=== PATIENT | female | born 1990 | race Caucasian/White ===

== ENCOUNTER 2016-10-12 08:56 | Inpatient (IN) | payer MEDICAID, OTHER ==
--- NOTE | 2016-10-12 09:36 | Emergency Department Report ---
Chief Complaint: Abdominal Pain Stated Complaint: 12 WKS PREG/SHARP PAINS ON SIDE Time Seen by Provider: 10/12/16 09:28 - HPI History of Present Illness: 26-year-old female comes in for complaint of right side pain 2 days. Patient reports that she is 12 weeks . She reports that the pain is gotten worse she does admit to nausea vomiting vaginal discharge and painful urination. Patient denies any diarrhea and no vaginal bleeding. She rates her pain 10 out of 10. She has not started OB care as of yet. She does admit to taking vitamins. - Exam Vital Signs: Vital Signs 10/12/16 09:04 Temperature 98.6 F Pulse Rate 109 H Respiratory 18 Rate Blood Pressure 121/71 O2 Sat by Pulse 98 Oximetry Physical Exam: Patient's alert and oriented 3. She is in obvious pain., Cardiovascular S1- S2 tachycardic respiratory care to auscultation bilateral abdomen soft and very tender around the john-umbilicus in the right lower quadrant as well as the right side. Extremities there is no edema. MSE screening note: Focused history and physical exam performed. Due to findings the following was ordered: She has been evaluated by this provider in C. CBCs CMP hCG serum lipase amylase urinalysis urine culture and ultrasound less than 14 weeks has been ordered. She'll be evaluated in the main ER by the physicians. ED Disposition for MSE Condition: Stable Instructions: Abdominal Pain (ED)
[2016-10-12 09:47] LABS: Hematocrit 33.1 % (30.3-42.9); Hemoglobin 10.7 gm/dl (10.1-14.3); Mean Corpuscular HGB Conc 32 % (30-34); Mean Corpuscular Volume 80 fl (79-97); Platelet Count 240 K/mm3 (140-440); Red Blood Count 4.15 M/mm3 (3.65-5.03); Red Cell Distribution Width 16.5 % (13.2-15.2); White Blood Count 15.1 K/mm3 (4.5-11.0)
[2016-10-12 09:49] LABS: Mean Corpuscular Hemoglobin 26 pg (28-32)
[2016-10-12 10:02] LABS: Alanine Aminotransferase 9 units/L (7-56); Albumin 3.7 g/dL (3.9-5); Albumin/Globulin Ratio 0.9 %; Alkaline Phosphatase 109 units/L (35-129); Amylase 40 units/L (27-131); Anion Gap 19 mmol/L; BUN/Creatinine Ratio 23.33; Bilirubin,Total 0.2 mg/dL (0.1-1.2); Blood Urea Nitrogen 7 mg/dL (7-17); Calcium 8.6 mg/dL (8.4-10.2); Carbon Dioxide 23 mmol/L (22-30); Chloride 98.1 mmol/L (98-107); Glucose 107 mg/dL (65-100); Lipase 18 units/L (13-60); Sodium 136 mmol/L (137-145); Total Protein 7.6 g/dL (6.3-8.2)
[2016-10-12 10:37] LABS: Bilirubin,Urine NEG (Negative); Blood,Urine SM (Negative); Ketones,Urine NEG (Negative); Leukocyte Esterase,Urine LG (Negative); Mucus,Urine FEW /HPF; Nitrite,Urine NEG (Negative); Urobilinogen,Urine < 2.0 mg/dL (<2.0)
[2016-10-12 10:38] LABS: WBC,Urine > 182.0 /HPF (0.0-6.0)
--- NOTE | 2016-10-12 11:37 | Ultrasound Report ---
ULTRASOUND ABDOMEN LIMITED INDICATION: Right upper quadrant pain. History of gallstones. COMPARISON: None similar. FINDINGS: Right upper quadrant sonography demonstrates normal hepatic contour and echotexture without focal suspicious lesions or biliary dilatation. Numerous small, mobile echogenic gallstones with posterior acoustic shadowing noted. Gallbladder wall thickness is 2 mm. No pericholecystic fluid. Positive sonographic Nails's sign. Common bile duct measures up to 4 mm. Included pancreas, nonaneurysmal abdominal aorta, IVC and the right kidney appear within normal limits. CONCLUSION: Cholelithiasis and positive sonographic Nails's sign, as described. Please correlate. Thank you for the opportunity to participate in this patient's care.
--- NOTE | 2016-10-12 11:49 | Ultrasound Report ---
ULTRASOUND OB LESS THAN 14 WEEKS - TRANSABDOMINAL AND TRANSVAGINAL INDICATION: Abdominal pain for 2 days. Positive uterine test. COMPARISON: None similar during this gestation. FINDINGS: Transabdominal and transvaginal pelvic sonography performed in this patient with estimated menstrual age of 11 weeks and zero days. An anteverted, gravid uterus measuring approximately 12.1 x 8 x 10.3 cm demonstrates a single, live intrauterine gestation with heart rate of 182 beats per minute. Mean crown-rump length of 5.7 cm corresponds to 12 weeks and 2 days. No significant free fluid. Cervix appears closed. body and limb movements noted. Few other obtained measurements are as follows: Biparietal diameter equals 1.8 cm, corresponding to 12 weeks and 5 days. Femur length 0.6 cm, corresponding to 12 weeks and zero days. Both maternal ovaries obscured. CONCLUSION: 1. Single, live intrauterine gestation with an ultrasound estimated age of 12 weeks and 2 days and HELEN of 04/24/2017. 2. Few other findings, as above. Thank you for the opportunity to participate in this patient's care.
[2016-10-12] MEDS ORDERED: TYLENOL #3 PO ONE (12:03)
[2016-10-12] MEDS ORDERED: MORPHINE IV ONE (19:27)
[2016-10-12] MEDS ORDERED: ZOFRAN IV ONE (19:27)
[2016-10-12] MEDS ORDERED: ZOSYN/NS 4.5GM/100ML 100 ML IV ONE (19:27)
--- NOTE | 2016-10-12 19:31 | Emergency Department Report ---
ED General Adult HPI - General Chief complaint: Abdominal Pain Stated complaint: 12 WKS PREG/SHARP PAINS ON SIDE Time Seen by Provider: 10/12/16 09:28 Source: patient, RN notes reviewed, old records reviewed Mode of arrival: Ambulatory Limitations: No Limitations - History of Present Illness Initial comments: This is a 26-year-old female, previously unknown to me. Has a past medical history of biliary colic. She is 6, para 4. Last menstrual period is July 27. She has not received any care. She presents to the ER complaining of right upper quadrant pain that radiates to the back. She endorses nausea and vomiting and generalized weakness. Patient also describes dysuria. Symptoms are constant for the past day or so. They're getting worse. She denies lower abdominal pain to me. She denies fevers but admits to chills. -: Gradual Location: back, abdomen Radiation: back Severity scale (0 -10): 10 Consistency: constant Improves with: rest Associated Symptoms: fever/chills, headaches, malaise, nausea/vomiting, weakness. denies: chest pain, cough, diaphoresis - Related Data Home Medications Medication Instructions Recorded Confirmed Last Taken Vit#96/Ferrous Fum/FA 1 tab PO DAILY 09/12/13 08/15/15 09/12/13 18:00 [ Tablet] Ferrous Sulfate [Iron Supplement] 325 mg PO DAILY 12/10/13 08/15/15 Unknown Allergies Allergy/AdvReac Type Severity Reaction Status Date / Time No Known Allergies Allergy Verified 12/10/13 00:15 ED Review of Systems ROS: Stated complaint: 12 WKS PREG/SHARP PAINS ON SIDE Other details as noted in HPI Constitutional: malaise Eyes: denies: eye discharge ENT: denies: epistaxis Respiratory: denies: cough Cardiovascular: denies: chest pain Gastrointestinal: abdominal pain, nausea, vomiting Genitourinary: urgency, dysuria, frequency Musculoskeletal: back pain Skin: denies: lesions Neurological: weakness ED Past Medical Hx - Past Medical History Hx Hypertension: No Hx Congestive Heart Failure: No Hx Diabetes: No Hx Deep Vein Thrombosis: No Hx Renal Disease: No Hx Sickle Cell Disease: No Hx Seizures: No Hx Asthma: No Hx COPD: No Hx HIV: No Additional medical history: gall stones - Surgical History Hx Cholecystectomy: Yes - Social History Smoking Status: Never Smoker - Medications Home Medications: Home Medications Medication Instructions Recorded Confirmed Last Taken Type Vit#96/Ferrous Fum/FA 1 tab PO DAILY 09/12/13 08/15/15 09/12/13 18:00 History [ Tablet] Ferrous Sulfate [Iron Supplement] 325 mg PO DAILY 12/10/13 08/15/15 Unknown History ED Physical Exam - General Limitations: No Limitations General appearance: alert, in distress - Head Head exam: Present: atraumatic, normocephalic - Eye Eye exam: Present: normal appearance, EOMI. Absent: nystagmus - ENT ENT exam: Present: normal exam, normal orophraynx, mucous membranes moist - Neck Neck exam: Present: normal inspection, full ROM. Absent: tenderness, meningismus - Respiratory Respiratory exam: Present: normal lung sounds bilaterally. Absent: respiratory distress, wheezes, rales, rhonchi, stridor, chest wall tenderness - Cardiovascular Cardiovascular Exam: Present: normal rhythm, tachycardia, normal heart sounds. Absent: systolic murmur, diastolic murmur, rubs, gallop - GI/Abdominal GI/Abdominal exam: Present: soft, tenderness, guarding, normal bowel sounds. Absent: distended, pulsatile mass - Extremities Exam Extremities exam: Present: normal inspection, full ROM, normal capillary refill. Absent: tenderness, pedal edema, joint swelling, calf tenderness - Back Exam Back exam: Present: normal inspection, full ROM, CVA tenderness (R). Absent: tenderness, muscle spasm, paraspinal tenderness, vertebral tenderness - Neurological Exam Neurological exam: Present: alert, oriented X3, other (Extraocular movements intact. Tongue midline. No facial droop. Facial sensation intact to light touch in the V1, V2, V3 distribution bilaterally. 5 and 5 strength in 4 extremities.. Sensation is intact to light touch in 4 extremities.). Absent: motor sensory deficit - Psychiatric Psychiatric exam: Present: normal affect, normal mood - Skin Skin exam: Present: warm, dry, intact, normal color. Absent: rash ED Course Vital Signs 10/12/16 10/12/16 10/12/16 09:04 20:13 23:10 Temperature 98.6 F 98.2 F Pulse Rate 109 H 115 H Respiratory 18 22 20 Rate Blood Pressure 121/71 Blood Pressure 110/63 [Left] O2 Sat by Pulse 98 100 Oximetry - Reevaluation(s) Reevaluation #1: 10/12/16 19:34 differential diagnosis: Normal intrauterine , pyelonephritis, cholecystitis Assessment and plan: 26-year-old female with clinical pyelonephritis, cholecystitis, intrauterine . Transabdominal/transvaginal ultrasound demonstrates a 12 week 2 day . Urine cultures, blood cultures are ordered. 2 L of IV fluids are ordered. Zosyn antibiotic is ordered. Case is discussed with the general surgeon, Dr. Patten, who will follow as a consult. Case is discussed with the mail processing associate, Dr. Cole, who accepts the patient to her service. 10/12/16 19:44 ED Medical Decision Making - Lab Data Result diagrams: 10/12/16 09:38 10/12/16 09:38 Vital Signs 10/12/16 09:04 Temperature 98.6 F Pulse Rate 109 H Respiratory 18 Rate Blood Pressure 121/71 O2 Sat by Pulse 98 Oximetry Lab Results 10/12/16 10/12/16 10/12/16 Range/Units 09:38 09:38 09:38 WBC 15.1 H (4.5-11.0) K/mm3 RBC 4.15 (3.65-5.03) M/mm3 Hgb 10.7 (10.1-14.3) gm/dl Hct 33.1 (30.3-42.9) % MCV 80 (79-97) fl MCH 26 L (28-32) pg MCHC 32 (30-34) % RDW 16.5 H (13.2-15.2) % Plt Count 240 (140-440) K/mm3 Sodium 136 L (137-145) mmol/L Potassium 4.0 (3.6-5.0) mmol/L Chloride 98.1 (98-107) mmol/L Carbon Dioxide 23 (22-30) mmol/L Anion Gap 19 mmol/L BUN 7 (7-17) mg/dL Creatinine 0.3 L (0.7-1.2) mg/dL Estimated GFR > 60 ml/min BUN/Creatinine Ratio 23.33 % Glucose 107 H (65-100) mg/dL Calcium 8.6 (8.4-10.2) mg/dL Total Bilirubin 0.2 (0.1-1.2) mg/dL AST 18 (5-40) units/L ALT 9 (7-56) units/L Alkaline Phosphatase 109 (35-129) units/L Total Protein 7.6 (6.3-8.2) g/dL Albumin 3.7 L (3.9-5) g/dL Albumin/Globulin Ratio 0.9 % Amylase 40 (27-131) units/L Lipase 18 (13-60) units/L HCG, Qual Positive (Negative) Urine Color (Yellow) Urine Turbidity (Clear) Urine pH (5.0-7.0) Ur Specific [place] (1.003-1.030) Urine Protein (Negative) mg/dL Urine Glucose (UA) (Negative) mg/dL Urine Ketones (Negative) mg/dL Urine Blood (Negative) Urine Nitrite (Negative) Urine Bilirubin (Negative) Urine Urobilinogen (<2.0) mg/dL Ur Leukocyte Esterase (Negative) Urine WBC (Auto) (0.0-6.0) /HPF Urine RBC (Auto) (0.0-6.0) /HPF U Epithel Cells (Auto) (0-13.0) /HPF Urine Mucus /HPF Urine Yeast (Budding) 10/12/16 Range/Units 10:08 WBC (4.5-11.0) K/mm3 RBC (3.65-5.03) M/mm3 Hgb (10.1-14.3) gm/dl Hct (30.3-42.9) % MCV (79-97) fl MCH (28-32) pg MCHC (30-34) % RDW (13.2-15.2) % Plt Count (140-440) K/mm3 Sodium (137-145) mmol/L Potassium (3.6-5.0) mmol/L Chloride (98-107) mmol/L Carbon Dioxide (22-30) mmol/L Anion Gap mmol/L BUN (7-17) mg/dL Creatinine (0.7-1.2) mg/dL Estimated GFR ml/min BUN/Creatinine Ratio % Glucose (65-100) mg/dL Calcium (8.4-10.2) mg/dL Total Bilirubin (0.1-1.2) mg/dL AST (5-40) units/L ALT (7-56) units/L Alkaline Phosphatase (35-129) units/L Total Protein (6.3-8.2) g/dL Albumin (3.9-5) g/dL Albumin/Globulin Ratio % Amylase (27-131) units/L Lipase (13-60) units/L HCG, Qual (Negative) Urine Color Yellow (Yellow) Urine Turbidity Cloudy (Clear) Urine pH 7.0 (5.0-7.0) Ur Specific [place] 1.013 (1.003-1.030) Urine Protein 30 mg/dl (Negative) mg/dL Urine Glucose (UA) Neg (Negative) mg/dL Urine Ketones Neg (Negative) mg/dL Urine Blood Sm (Negative) Urine Nitrite Neg (Negative) Urine Bilirubin Neg (Negative) Urine Urobilinogen < 2.0 (<2.0) mg/dL Ur Leukocyte Esterase Lg (Negative) Urine WBC (Auto) > 182.0 H (0.0-6.0) /HPF Urine RBC (Auto) 6.0 (0.0-6.0) /HPF U Epithel Cells (Auto) < 1.0 (0-13.0) /HPF Urine Mucus Few /HPF Urine Yeast (Budding) Not Reportable - Radiology Data Radiology results: report reviewed, image reviewed Right upper quadrant ultrasound suggests cholecystitis. There is a positive sonographic Nails sign. Gallbladder wall thickness is 2 mm. Transvaginal/transabdominal ultrasound demonstrates a single live intrauterine gestation of 12 weeks and 2 days, appropriate heartbeat. Critical care attestation.: If time is entered above; I have spent that time in minutes in the direct care of this critically ill patient, excluding procedure time. ED Disposition Clinical Impression: Maternal pyelonephritis, current , Cholecystitis Disposition: OP ADMITTED IP TO THIS HOSP Is pt being admited?: Yes Does the pt Need Aspirin: No Condition: Good
[2016-10-12] MEDS ORDERED: NACL 0.9% 1000 ML 1,000 ML ONE ×2 (19:56→19:57)
[2016-10-12] MEDS ORDERED: NACL 0.9% 500 ML IV SCH (20:00)
--- NOTE | 2016-10-12 22:54 | Admit Criteria Form ---
Admission Criteria Documentation: GALLBLADDER OR BILE DUCT INFLAMMATION OR STONE Clinical Indications for Admission to Inpatient Care ( Place 'X' for any and all applicable criteria): Admission is indicated for patients with ANY ONE of the following(1)(2)(3)(4)(5) : [ ]I. Acute cholecystitis as indicated by ALL of the following: [ ]a) Right upper quadrant pain, mass, or tenderness [ ]b) Systemic signs of inflammation indicated by ANY ONE of the following: [ ]i) Fever [ ]ii) C-reactive protein level greater than 10 mg/L (95 nmol/L) [ ]iii) White blood cell count greater than 10,000/mm3 (10 x109/L) or less than 4000/mm3 (4 x109/L) [ X]II. Inpatient admission required rather than observation care (Also use Gallbladder or Bile Duct Inflammation or Stone: Observation Care as appropriate) because of ANY ONE of the following: [ ]a) Common bile duct obstruction diagnosed [ ]b) Vomiting that is severe or persistent [ ]c) Severe pain requiring acute inpatient management [ ]d) Signs of intestinal obstruction or peritonitis [A] [ ]e) Severe electrolyte abnormalities requiring inpatient care [ ]f) Absent bowel sounds with complete ileus(8) [ ]g) Hemodynamic instability [ ]h) High fever or infection requiring inpatient admission as indicated by ANY ONE of the following (9): [ ]1) Appropriate outpatient or observation care antimicrobial Treatment. unavailable, not effective, or not feasible [ ]2) Temperature greater than 104.9 degrees F (40.5 degrees C) (oral) [ ]3) Temperature greater than 103.1 degrees F (39.5 degrees C) (oral) or less than 96.8 degrees F (36 degrees C) (rectal) that does not respond to all emergency treatment measures [ ]4) Documented bacteremia [ ]i) IV fluid to replace significant ongoing losses (greater than 3 L/m2 per day) [ ]j) Percutaneous or open drainage (eg, abscess, biliary tract) procedures [ ]k) Immediate inpatient surgery [X ]l) Other condition, treatment or monitoring requiring inpatient admission [ ]III. Acute cholangitis as indicated by ALL of the following(9)(10): [ ]a) Systemic signs of inflammation indicated by ANY ONE of the following: [ ]i) Fever [ ]ii) C-reactive protein level greater than 10 mg/L (95 nmol /L) [ ]iii) White blood cell count greater than 10,000/mm3 (10 x109/L) or less than 4000/mm3 (4 x109/L) [ ]b) Evidence of common bile duct disease indicated by ANY ONE of the following: [ ]i) Total serum bilirubin level greater than or equal to 2 mg/dL (34 micromoles/L) [ ]ii) Liver function test (alkaline phosphatase (ALP), r- glutamyltransferase (GGT), aspartate aminotransferase (AST), or alanine aminotransferase (ALT)) greater than 1.5 times the upper limit of normal[B] [ ]iii) Hepatobiliary imaging showing biliary dilatation or evidence of etiology (eg, stricture, stone, previously placed stent) Extended stay beyond goal length of stay may be needed for (1)(2)): [ ]a) Bacteremia or Hemodynamic instability [ ]b) Cholecystectomy [ ]c) Other surgical procedure(24) [ ]d) Percutaneous or endoscopic ultrasound-guided cholecystostomy The original [facility] content created by [facility] has been revised. The portions of the content which have been revised are identified through the use of italic text or in bold, and [facility] has neither reviewed nor approved the modified material. All other unmodified content is copyright [facility]. Please see references footnoted in the original [facility] edition 2016 Admission Criteria Met: Yes
[2016-10-12] MEDS ORDERED: NACL 0.9% 1000 ML 1,000 ML IV ONE (22:56)
[2016-10-12] MEDS: ZOFRAN IV PRN (23:24)
[2016-10-12] MEDS: MORPHINE IV PRN (23:24)
[2016-10-13] MEDS: MORPHINE IV PRN ×5 (01:46→18:50)
--- NOTE | 2016-10-13 05:59 | History and Physical Report ---
History of Present Illness Date of examination: 10/13/16 Date of admission: 10/12/16 19:50 Chief complaint: Intrauterine at 12 weeks, cholecystitis, pyelonephritis History of present illness: This is a 26-year-old female 6 para 1314 who presented to the ER with complaint of severe right upper quadrant pain and right flank pain that started on Tuesday. She states she knew she was . States she's had nausea and vomiting for the last several weeks most likely associated with morning sickness. Pain became excessively severe yesterday and she presented to the ED for evaluation. Right upper quadrant abdominal ultrasound was consistent with cholelithiasis with a positive Nails sign. Urinalysis revealed large amount of leukocytes and trace protein. She had a temperature of 100.0F early this a.m. also patient has right flank and CVA tenderness. She is admitted now for evaluation and management of pyelonephritis and cholecystitis. # 1 Delivery date: 12/15/2009 Weeks Gestation: 36 labor: yes Delivery type: Hours of labor: >12 Anesthesia type: epidural Delivery location: [place] [facility] Sex: Male weight: 6-0 Name: Roby Comments: david # 2 Delivery date: 09/08/2011 Weeks Gestation: 32 labor: yes Delivery type: Hours of labor: 6 Anesthesia type: IV Delivery location: [place] Sex: Female weight: 4-12 Name: Waleska # 3 Delivery date: 10/2012 Weeks Gestation: 7 Delivery type: SAB Comments: D&C done 2 weeks after SAB # 4 Delivery date: 01/11/2014 Weeks Gestation: 36 Delivery type: Vaginal Delivery location: [facility] Inf[facility] Sex: female Comments: labor # 5 Delivery Date: 08/15/2015 Gestational Age: 37 weeks Delivery Type: Vaginal Complications: 1.intrahepatic cholestasis of 2.preciptous delivery en route in to L&D by private car. Past Medical History: Reviewed history from 09/03/2013 and no changes required: Anemia Gallstone Past Surgical History: Reviewed history from 09/03/2013 and no changes required: D&C: Family History Summary: Reviewed history and no changes required: 04/02/2015 General Comments - FH: Family History of Diabetes Family History of Hypertension No Family History of Breast Cancer No Family History of Cervical Cancer No Family History of Colon Cancer No Family History of Ovarvian Cancer No Family History of DVT/PE on OCP Social History: Reviewed history from 09/03/2013 and no changes required: Patient is single unemployed Past Medical History Abnormal PAP: negative Uterine Anomaly: negative Other Gynecologic Problems: negative Social Hx: Patient is single unemployed Infection History Hx of STD: none Personal hx. of genital herpes: no Partner hx. of genital herpes: no Rash, Viral, or Febrile illness since last LMP? no Varicella/Chicken Pox Status: Previous Disease Medications and Allergies Allergies Allergy/AdvReac Type Severity Reaction Status Date / Time No Known Allergies Allergy Verified 12/10/13 00:15 Home Medications Medication Instructions Recorded Confirmed Last Taken Type Vit#96/Ferrous Fum/FA 1 tab PO DAILY 09/12/13 08/15/15 09/12/13 18:00 History [ Tablet] Ferrous Sulfate [Iron Supplement] 325 mg PO DAILY 12/10/13 08/15/15 Unknown History Active Meds: Active Medications Ceftriaxone Sodium (Rocephin/Ns 1 Gm/50 Ml) 50 mls @ 100 mls/hr IV Q24HR KAJAL PRN Reason: Protocol Sodium Chloride (Nacl 0.9% 1000 Ml) 1,000 mls @ 125 mls/hr IV ONCE ONE Stop: 10/13/16 06:55 Last Admin: 10/12/16 23:24 Dose: 125 mls/hr Morphine Sulfate (Morphine) 2 mg IV Q4H PRN PRN Reason: Pain, Moderate (4-6) Last Admin: 10/13/16 05:35 Dose: 2 mg Morphine Sulfate (Morphine) 4 mg IV Q4H PRN PRN Reason: Pain , Severe (7-10) Last Admin: 10/12/16 23:24 Dose: 4 mg Ondansetron HCl (Zofran) 4 mg IV Q4H PRN PRN Reason: Nausea And Vomiting Last Admin: 10/12/16 23:24 Dose: 4 mg Review of Systems All systems: negative Constitutional: weakness, lethargy Gastrointestinal: abdominal pain, nausea, vomiting Genitourinary Female: flank pain Neurological: syncope Exam - Constitutional Vitals: Temp Pulse Resp BP Pulse Ox 99.4 F 106 H 16 102/50 100 10/13/16 05:20 10/13/16 05:20 10/13/16 05:20 10/13/16 05:20 10/12/16 23:10 General appearance: Present: no acute distress - Respiratory Respiratory effort: normal Respiratory: right: CTA, left: wheezing - Cardiovascular Rhythm: regular - Extremities Extremities: no ischemia, No edema - Abdominal General gastrointestinal: Present: soft, normal bowel sounds Localized gastrointestinal: tender: RUQ Female genitourinary: Present: deferred - Integumentary Integumentary: Present: clear, warm, dry - Musculoskeletal Musculoskeletal: other (right CVA/flank tenderness) - Psychiatric Psychiatric: appropriate mood/affect Results - Labs CBC & Chem 7: 10/12/16 09:38 10/12/16 09:38 - Imaging and Cardiology US - abdomen: report reviewed (pelvic ultrasound report also reviewed) Assessment and Plan - Patient Problems (1) 12 weeks gestation of Current Visit: Yes Status: Acute (2) Cholecystitis Current Visit: Yes Status: Acute Plan to address problem: 1. Dr. Gorman is being consult to manage cholecystitis 2. Continue nothing by mouth (3) Maternal pyelonephritis, current Current Visit: Yes Status: Acute Plan to address problem: 1. Rocephin 1 g IV daily 2. Urine culture pending 3. Renal ultrasound (4) Wheezing Current Visit: Yes Status: Acute Plan to address problem: Chest x-ray abdominal shielding (5) Syncopal episodes Current Visit: Yes Status: Chronic Plan to address problem: Patient states she passed out twice over the last week. Each episode here to be associated with hypoglycemia. She denied any chest pain, shortness of breath , headache visual changes.Will Observe for now
--- NOTE | 2016-10-13 08:50 | XRay Report ---
ROUTINE CHEST, TWO VIEWS: HISTORY: Wheezing. The trachea, heart, mediastinal contour, lung wetzel and bony thorax are unremarkable. IMPRESSION: Unremarkable chest x-ray.
--- NOTE | 2016-10-13 09:44 | Ultrasound Report ---
ULTRASOUND RENAL INDICATION: Evaluate for nephrolithiasis. COMPARISON: RUQ ultrasound from yesterday. FINDINGS: Renal sonography demonstrates normal renal cortical echogenicity. Few small non-shadowing renal echogenicities bilaterally, though nonspecific. Grossly preserved contours. No hydronephrosis. Cholelithiasis again noted. Right kidney measures 11.2 x 5 x 6.4 cm with cortical thickness of 1.5 cm. Left kidney estimated at 10.8 x 5.3 x 6 cm with cortical thickness of 1.9 cm. Urinary bladder suboptimally distended and assessed. CONCLUSION: No acute renal sonographic abnormality with cholelithiasis again noted, as described. Please note that renal calculi assessment better achieved with CT, if warranted. Thank you for the opportunity to participate in this patient's care.
[2016-10-13] MEDS: ROCEPHIN/NS 1 GM/50 ML 50 ML IV SCH (11:25)
[2016-10-13] MEDS: LACTATED RINGERS 1,000 ML IV SCH (16:20)
[2016-10-13] MEDS: ZOFRAN IV PRN (20:00)
[2016-10-14] MEDS: MORPHINE IV PRN ×5 (00:20→19:55)
[2016-10-14] MEDS: LACTATED RINGERS 1,000 ML IV SCH ×4 (00:20→21:23)
[2016-10-14] MEDS: ZOFRAN IV PRN ×4 (00:20→21:23)
--- NOTE | 2016-10-14 02:24 | Consultation ---
REASON FOR CONSULTATION: Rule out acute cholecystitis. HISTORY OF PRESENT ILLNESS: The patient is a healthy 26-year-old female, 12 weeks gestation, who presented to the hospital with a chief complaint of right upper quadrant abdominal pain as well as right flank pain accompanied by nausea and vomiting. Pertinent history again is that she is 12 weeks . PAST MEDICAL HISTORY: Negative. PAST SURGICAL HISTORY: Status post D and C. ALLERGIES: No known allergies. MEDICATIONS: Include vitamins. FAMILY HISTORY: Asthma and diabetes. SOCIAL HISTORY: Denies any smoking or drinking. REVIEW OF SYSTEMS: Noncontributory. PHYSICAL EXAMINATION: GENERAL: At this time reveals the patient to be awake, alert, cooperative, in mild discomfort, but no acute distress. VITAL SIGNS: Show her to be running a low grade temperature of 99.4. Blood pressure of 109/57, pulse of 108, respirations of 20. HEENT: Pupils are equal and reactive to light and accommodation. Sclerae are nonicteric. ABDOMEN: Examination of the abdomen reveals the uterus to be compatible with 12 weeks' gestation. There is some right upper quadrant tenderness that can be elicited as well as some right flank tenderness. The rest of the abdomen is soft and nontender. Bowel sounds are present. LABORATORY DATA: Lab work at present includes a CBC which shows a white count of 15.1, H and H is 10.7 and 33.1. Electrolytes are essentially within normal limits. Liver functions are also normal including a total bilirubin of 0.2, AST is 18, ALT is 9, alkaline phosphatase is 109. Amylase is normal at 40 and lipase is normal at 18. Urinalysis shows over 180 wbc's. The urine is cloudy. Urine clean catch was done, which shows a preliminary gram-negative rods. Gallbladder ultrasound was also performed, which shows cholelithiasis. There is no mentioning of pericholecystic fluid. The gallbladder wall was essentially normal with a 2 mm thickness. Common bile duct is described as 4 mm. A transvaginal ultrasound again confirmed an intrauterine gestation estimated at 12 weeks. No other pelvic abnormalities were noted. Renal ultrasound shows no acute renal sonographic abnormalities and cholelithiasis is once again confirmed. IMPRESSION AND PLAN: At this time is that of a 26-year-old healthy female, 12 weeks gestation: 1. Rule out acute cholecystitis. 2. Rule out pyelonephritis. RECOMMENDATION: At this time, we will keep the patient n.p.o. except for ice chips and p.o. medications. Begin appropriate antibiotic coverage that would cover both acute cholecystitis as well as her positive urine culture. Antibiotics as per retread mold operator due to the patient's . We will monitor her closely clinically for the next 24-48 hours. If she clinically improves, then we may be able to postpone her surgery until . However, if the patient is not clinically improved or her condition worsens, then we will proceed with attempted laparoscopic cholecystectomy, possible open cholecystectomy. Risks and indications have been reviewed with the patient as well as her mom and also possible risks and complications because of her , to the fetus because of her . We will follow closely with you. Thank you very much for consultation. JOB# [id number] SPENCER/LUTHER
[2016-10-14 06:32] LABS: Basophils % (Auto) 0.1 % (0.0-1.8); Eosinophils % (Auto) 0.1 % (0.0-4.3); Hematocrit 26.6 % (30.3-42.9); Hemoglobin 8.8 gm/dl (10.1-14.3); Mean Corpuscular HGB Conc 33 % (30-34); Mean Corpuscular Hemoglobin 26 pg (28-32); Mean Corpuscular Volume 79 fl (79-97); Platelet Count 187 K/mm3 (140-440); Red Blood Count 3.36 M/mm3 (3.65-5.03); Red Cell Distribution Width 16.1 % (13.2-15.2); White Blood Count 11.3 K/mm3 (4.5-11.0)
[2016-10-14 06:58] LABS: Alanine Aminotransferase 15 units/L (7-56); Albumin 2.9 g/dL (3.9-5); Alkaline Phosphatase 154 units/L (35-129); Anion Gap 15 mmol/L; BUN/Creatinine Ratio 13.33; Bilirubin,Total 0.2 mg/dL (0.1-1.2); Blood Urea Nitrogen 4 mg/dL (7-17); Calcium 7.8 mg/dL (8.4-10.2); Carbon Dioxide 20 mmol/L (22-30); Chloride 98.2 mmol/L (98-107); Glucose 84 mg/dL (65-100); Potassium 3.5 mmol/L (3.6-5.0); Sodium 130 mmol/L (137-145); Total Protein 5.8 g/dL (6.3-8.2)
--- NOTE | 2016-10-14 10:31 | Consultation ---
History of Present Illness - Reason for Consult Consult date: 10/14/16 UTI - History of Present Illness Ms Crouch is a 26y/o female ( ) who presents for admission to , 12 weeks with now a history of worsening right upper quadrant pain ( 10/10 intensity) associated with nausea and vomiting. She has evidence of cholelithiasis without ultrasound findings of cholecystitis. In addition she has an active urinary sediment with urine culture showing growth of Escherichia coli. Ms Crouch describes being told that she had gallstones in the past and apparently at one time there was consideration for possible surgery. Recently she has been aware of more frequent indigestion with fried or greasy foods. She otherwise, over the last several days, has had urinary frequency, urgency and dysuria. She does not have a history of recurrent UTIs or pyelonephritis. She has had no difficulties with her previous pregnancies. She has no history of STD or HIV. She denies other chronic medical problems. Renal ultrasound is otherwise unremarkable. Gallbladder ultrasound is noted with stones without evidence of gallbladder wall thickening or pericholecystic fluid. Further lab data from 10/12 includes a CBC with white count 15,100, hemoglobin 10.7 and platelet count 240,000. Lactate levels 1.7. Urinalysis showed greater than 182 WBCs with cloudy urine described. Blood cultures are negative. Liver profile is unremarkable. The patient is seen now for further ID recommendations. Medications and Allergies Allergies Allergy/AdvReac Type Severity Reaction Status Date / Time No Known Allergies Allergy Verified 12/10/13 00:15 Home Medications Medication Instructions Recorded Confirmed Last Taken Type Vit#96/Ferrous Fum/FA 1 tab PO DAILY 09/12/13 10/13/16 09/12/13 18:00 History [ Tablet] Ferrous Sulfate [Iron Supplement] 325 mg PO DAILY 12/10/13 10/13/16 Unknown History Active Meds: Active Medications Ceftriaxone Sodium (Rocephin/Ns 1 Gm/50 Ml) 50 mls @ 100 mls/hr IV Q24HR KAJAL PRN Reason: Protocol Last Admin: 10/13/16 11:25 Dose: 100 mls/hr Lactated Ringer's (Lactated Ringers) 1,000 mls @ 125 mls/hr IV DIRECT KAJAL Last Admin: 10/14/16 07:31 Dose: 125 mls/hr Morphine Sulfate (Morphine) 2 mg IV Q4H PRN PRN Reason: Pain, Moderate (4-6) Last Admin: 10/14/16 03:55 Dose: 2 mg Morphine Sulfate (Morphine) 4 mg IV Q4H PRN PRN Reason: Pain , Severe (7-10) Last Admin: 10/14/16 00:20 Dose: 4 mg Ondansetron HCl (Zofran) 4 mg IV Q4H PRN PRN Reason: Nausea And Vomiting Last Admin: 10/14/16 03:55 Dose: 4 mg Review of Systems Gastrointestinal: abdominal pain, nausea, vomiting (see discussion) Physical Examination - Physical Exam Narrative exam: Well-developed, well-nourished appearing. No distress. HEENT: Pupils are equal reactive to light and accommodation. Conjunctiva clear. Oropharynx is normal with no evidence of oral candidiasis or pharyngitis. NECK: Supple. No enlargement of the thyroid gland. No significant cervical lymphadenopathy. No jugular venous distention at 30. LUNGS: Clear with no adventitious sounds. HEART: Regular rate. S1 and S2 are normal. Soft systolic murmur along the left sternal border. No diastolic murmur. ABDOMEN: Soft. Slight right upper quadrant tenderness but marked right flank CVA point tenderness. : As per BUILDING REPAIR MAINTENANCE SUPERVISOR. EXTREMITIES: No rash, peripheral lymphadenopathy, clubbing or edema. SKIN: No other rash, ulcers or wounds. NEUROLOGIC: No focal findings. - Constitutional Vitals: Vital Signs Temp Pulse Resp BP Pulse Ox 99.9 F H 94 H 18 102/54 100 10/14/16 07:24 10/14/16 07:24 10/14/16 07:24 10/14/16 07:24 10/12/16 23:10 Temperature -Last 24 Hours Temperature 99.9 F Temperature 99.8 F Temperature 99.7 F Temperature 99.9 F Temperature 98.4 F Temperature 98.3 F Results - Labs CBC & Chem 7: 10/14/16 06:14 10/14/16 06:14 Labs: Abnormal lab results 10/14/16 10/14/16 Range/Units 06:14 06:14 WBC 11.3 H (4.5-11.0) K/mm3 RBC 3.36 L (3.65-5.03) M/mm3 Hgb 8.8 L (10.1-14.3) gm/dl Hct 26.6 L D (30.3-42.9) % MCH 26 L (28-32) pg RDW 16.1 H (13.2-15.2) % Lymph % (Auto) 10.2 L (13.4-35.0) % [place] % (Auto) 7.8 H (0.0-7.3) % [place] # 0.9 H (0.0-0.8) K/mm3 Seg Neutrophils % 81.8 H (40.0-70.0) % Seg Neutrophils # 9.3 H (1.8-7.7) K/mm3 Sodium 130 L (137-145) mmol/L Potassium 3.5 L (3.6-5.0) mmol/L Carbon Dioxide 20 L (22-30) mmol/L BUN 4 L (7-17) mg/dL Creatinine 0.3 L (0.7-1.2) mg/dL Calcium 7.8 L (8.4-10.2) mg/dL Alkaline Phosphatase 154 H (35-129) units/L Total Protein 5.8 L D (6.3-8.2) g/dL Albumin 2.9 L (3.9-5) g/dL Assessment and Plan Assessment: Ms Crouch is a 26y/o female ( ) who presents for admission to 12 weeks with now a history of worsening right upper quadrant pain ( 10/10 intensity) associated with nausea and vomiting. She has evidence of cholelithiasis without ultrasound findings of cholecystitis. In addition she has an active urinary sediment with urine culture showing growth of Escherichia coli. Antibiotics: Ceftriaxone 1 g IV daily (10/13 - > Conclusions: 1. Escherichia coli UTI - R/O right sided pyelonephritis - Renal ultrasound unremarkable - Right CVA point tenderness 2. Cholelithiasis - R/O cholecystitis - Gallbladder ultrasound without wall thickening or pericholecystic fluid 3. 12 week intrauterine - Para 6 4 4. Nausea and vomiting - Out of proportion to morning sickness - R/O secondary to above 5. Leukocytosis secondary to above 6. Anemia - probably related Recommendations: - Suspect clinical findings, especially in light of ultrasound findings, are more consistent with symptomatic UTI/right pyelonephritis - Will continue IV ceftriaxone 1 g daily. Await further Escherichia coli sensitivity data - Decisions regarding possible need for cholecystectomy hopefully can be made at a later time following her . - Continue to follow WBC numbers - Continue supportive care.
[2016-10-14] MEDS: ROCEPHIN/NS 1 GM/50 ML 50 ML IV SCH (10:38)
--- NOTE | 2016-10-14 12:48 | Progress Note ---
Assessment and Plan Pt feeling "a little better" Abd soft. minimal RUQ tenderness (improved) pain now more localized in R flank wbc improved. ID eval appreciated clinically improved cholelithiasis/ cholecystitis? R pyelo keep npo x 24 more hrs continue present care Selected Entries 10/14/16 11:58 Temperature 99.3 F Respiratory 18 Rate Blood Pressure 113/60 [Left Arm] Laboratory Tests 10/14/16 10/14/16 06:14 06:14 WBC 11.3 H Hgb 8.8 L Hct 26.6 L D Sodium 130 L Potassium 3.5 L Chloride 98.2 BUN 4 L Creatinine 0.3 L Total Bilirubin 0.2 AST 21 ALT 15 Alkaline Phosphatase 154 H Objective Vital Signs - 12hr 10/14/16 10/14/16 10/14/16 03:55 04:35 07:24 Temperature 99.8 F H 99.9 F H Pulse Rate [ 91 H 94 H Left From Monitor] Respiratory 16 20 18 Rate Blood Pressure 97/51 102/54 [Left Arm] 10/14/16 10/14/16 11:58 12:00 Temperature 99.3 F Pulse Rate [ 88 Left From Monitor] Respiratory 18 20 Rate Blood Pressure 113/60 [Left Arm] - Labs 10/14/16 06:14 10/14/16 06:14 Diabetes panel 10/14/16 Range/Units 06:14 Sodium 130 L (137-145) mmol/L Potassium 3.5 L (3.6-5.0) mmol/L Chloride 98.2 (98-107) mmol/L Carbon Dioxide 20 L (22-30) mmol/L BUN 4 L (7-17) mg/dL Creatinine 0.3 L (0.7-1.2) mg/dL Glucose 84 (65-100) mg/dL Calcium 7.8 L (8.4-10.2) mg/dL AST 21 (5-40) units/L ALT 15 (7-56) units/L Alkaline Phosphatase 154 H (35-129) units/L Total Protein 5.8 L D (6.3-8.2) g/dL Albumin 2.9 L (3.9-5) g/dL Calcium panel 10/14/16 Range/Units 06:14 Calcium 7.8 L (8.4-10.2) mg/dL Albumin 2.9 L (3.9-5) g/dL Pituitary panel 10/14/16 Range/Units 06:14 Sodium 130 L (137-145) mmol/L Potassium 3.5 L (3.6-5.0) mmol/L Chloride 98.2 (98-107) mmol/L Carbon Dioxide 20 L (22-30) mmol/L BUN 4 L (7-17) mg/dL Creatinine 0.3 L (0.7-1.2) mg/dL Glucose 84 (65-100) mg/dL Calcium 7.8 L (8.4-10.2) mg/dL Adrenal panel 10/14/16 Range/Units 06:14 Sodium 130 L (137-145) mmol/L Potassium 3.5 L (3.6-5.0) mmol/L Chloride 98.2 (98-107) mmol/L Carbon Dioxide 20 L (22-30) mmol/L BUN 4 L (7-17) mg/dL Creatinine 0.3 L (0.7-1.2) mg/dL Glucose 84 (65-100) mg/dL Calcium 7.8 L (8.4-10.2) mg/dL Total Bilirubin 0.2 (0.1-1.2) mg/dL AST 21 (5-40) units/L ALT 15 (7-56) units/L Alkaline Phosphatase 154 H (35-129) units/L Total Protein 5.8 L D (6.3-8.2) g/dL Albumin 2.9 L (3.9-5) g/dL
--- NOTE | 2016-10-14 15:09 | Progress Note ---
Assessment and Plan - Patient Problems (1) 12 weeks gestation of Current Visit: Yes Status: Acute (2) Maternal pyelonephritis, current Current Visit: Yes Status: Acute Plan to address problem: 1. Urine culture positive for Escherichia coli and sleeve to Rocephin 2. Continue Rocephin until patient is able to tolerate regular diet therefore oral antibiotics (3) Cholelithiasis Current Visit: Yes Status: Acute Plan to address problem: Advance diet when okay with surgery Subjective Date of service: 10/14/16 Principal diagnosis: pyelonephritis, intrauterine at 12 weeks, cholelithiasis Interval history: Patient is resting in bed complains of a headache otherwise no major complaints. Objective - Constitutional Vitals: Vital Signs - 12hr 10/14/16 10/14/16 10/14/16 03:55 04:35 07:24 Temperature 99.8 F H 99.9 F H Pulse Rate [ 91 H 94 H Left From Monitor] Respiratory 16 20 18 Rate Blood Pressure 97/51 102/54 [Left Arm] 10/14/16 10/14/16 11:58 12:00 Temperature 99.3 F Pulse Rate [ 88 Left From Monitor] Respiratory 18 20 Rate Blood Pressure 113/60 [Left Arm] - Labs CBC & Chem 7: 10/14/16 06:14 10/14/16 06:14 Labs: Abnormal lab results 10/14/16 10/14/16 Range/Units 06:14 06:14 WBC 11.3 H (4.5-11.0) K/mm3 RBC 3.36 L (3.65-5.03) M/mm3 Hgb 8.8 L (10.1-14.3) gm/dl Hct 26.6 L D (30.3-42.9) % MCH 26 L (28-32) pg RDW 16.1 H (13.2-15.2) % Lymph % (Auto) 10.2 L (13.4-35.0) % [place] % (Auto) 7.8 H (0.0-7.3) % [place] # 0.9 H (0.0-0.8) K/mm3 Seg Neutrophils % 81.8 H (40.0-70.0) % Seg Neutrophils # 9.3 H (1.8-7.7) K/mm3 Sodium 130 L (137-145) mmol/L Potassium 3.5 L (3.6-5.0) mmol/L Carbon Dioxide 20 L (22-30) mmol/L BUN 4 L (7-17) mg/dL Creatinine 0.3 L (0.7-1.2) mg/dL Calcium 7.8 L (8.4-10.2) mg/dL Alkaline Phosphatase 154 H (35-129) units/L Total Protein 5.8 L D (6.3-8.2) g/dL Albumin 2.9 L (3.9-5) g/dL
[2016-10-15] MEDS: MORPHINE IV PRN ×5 (00:25→22:37)
[2016-10-15] MEDS: LACTATED RINGERS 1,000 ML IV SCH ×3 (04:44→18:17)
[2016-10-15] MEDS: ZOFRAN IV PRN (04:45)
[2016-10-15 06:45] LABS: Basophils % (Auto) 0.2 % (0.0-1.8); Eosinophils % (Auto) 0.2 % (0.0-4.3); Hematocrit 26.3 % (30.3-42.9); Hemoglobin 8.9 gm/dl (10.1-14.3); Mean Corpuscular HGB Conc 34 % (30-34); Mean Corpuscular Hemoglobin 27 pg (28-32); Mean Corpuscular Volume 80 fl (79-97); Platelet Count 197 K/mm3 (140-440); Red Cell Distribution Width 16.2 % (13.2-15.2); White Blood Count 7.1 K/mm3 (4.5-11.0)
--- NOTE | 2016-10-15 10:37 | Progress Note ---
Assessment and Plan Pt continues to feel better. Abd soft. mild R flank tenderness wbc down to normal. pyelo - improving attempt low fat cl liq diet Selected Entries 10/15/16 08:09 Temperature 98.4 F Pulse Rate [ 86 Left From Monitor] Respiratory 18 Rate Blood Pressure 106/53 [Left Arm] Laboratory Tests 10/15/16 05:56 WBC 7.1 Hgb 8.9 L Hct 26.3 L Objective Vital Signs - 12hr 10/15/16 10/15/16 10/15/16 00:00 04:00 08:09 Temperature 99.7 F H 98.9 F 98.4 F Pulse Rate [ 91 H 80 86 Left From Monitor] Respiratory 18 18 18 Rate Blood Pressure 104/50 101/58 106/53 [Left Arm] - Labs 10/15/16 05:56 10/14/16 06:14
[2016-10-15] MEDS: ROCEPHIN/NS 1 GM/50 ML 50 ML IV SCH (11:04)
--- NOTE | 2016-10-15 16:18 | Progress Note ---
Assessment and Plan Assessment: Ms Crouch is a 26y/o female ( ) who presents for admission to 12 weeks with now a history of worsening right upper quadrant pain ( 10/10 intensity) associated with nausea and vomiting. She has evidence of cholelithiasis without ultrasound findings of cholecystitis. In addition she has an active urinary sediment with urine culture showing growth of Escherichia coli. Antibiotics: Ceftriaxone 1 g IV daily (10/13 - > Conclusions: 1. Escherichia coli ( pansensitive) UTI - R/O right sided pyelonephritis - Renal ultrasound unremarkable - Right CVA point tenderness 2. Cholelithiasis - R/O cholecystitis - Gallbladder ultrasound without wall thickening or pericholecystic fluid 3. 12 week intrauterine - Para 6 4 4. Nausea and vomiting - Out of proportion to morning sickness - R/O secondary to above 5. Leukocytosis secondary to above - Resolved 6. Anemia - probably related Recommendations: - Suspect clinical findings, especially in light of ultrasound findings, are more consistent with symptomatic UTI/right pyelonephritis - Will continue IV ceftriaxone 1 g daily. Should be able to change to po ampicillin/amoxicillin in next few days time. - Decisions regarding possible need for cholecystectomy hopefully can be made at a later time following her . - Continue supportive care. Subjective Date of service: 10/15/16 Principal diagnosis: pyelonephritis, intrauterine at 12 weeks, cholelithiasis Interval history: Right sided abdominal and back pain has improved. Nausea improved. Objective - Exam Narrative Exam: Well-developed, well-nourished appearing. No distress. HEENT: Pupils are equal reactive to light and accommodation. Conjunctiva clear. Oropharynx is normal with no evidence of oral candidiasis or pharyngitis. NECK: Supple. No enlargement of the thyroid gland. No significant cervical lymphadenopathy. No jugular venous distention at 30. LUNGS: Clear with no adventitious sounds. HEART: Regular rate. S1 and S2 are normal. Soft systolic murmur along the left sternal border. No diastolic murmur. ABDOMEN: Soft. Minimal right upper quadrant tenderness. CVA point tenderness less than yesterday. : As per CONTROL CENTER OPERATOR. EXTREMITIES: No rash, peripheral lymphadenopathy, clubbing or edema. SKIN: No other rash, ulcers or wounds. NEUROLOGIC: No focal findings. - Constitutional Vitals: Vital Signs Temp Pulse Resp BP Pulse Ox 98.9 F 76 18 114/65 100 01/13/17 12:00 10/15/16 12:00 10/15/16 12:00 10/15/16 12:00 10/12/16 23:10 Temperature -Last 24 Hours Temperature 98.9 F Temperature 98.4 F Temperature 98.9 F Temperature 99.7 F Temperature 99.1 F - Labs CBC & Chem 7: 10/15/16 05:56 10/14/16 06:14 Labs: Abnormal lab results 10/15/16 Range/Units 05:56 RBC 3.30 L (3.65-5.03) M/mm3 Hgb 8.9 L (10.1-14.3) gm/dl Hct 26.3 L (30.3-42.9) % MCH 27 L (28-32) pg RDW 16.2 H (13.2-15.2) % [place] % (Auto) 9.8 H (0.0-7.3) % Lymph # 1.1 L (1.2-5.4) K/mm3 Seg Neutrophils % 73.8 H (40.0-70.0) %
--- NOTE | 2016-10-15 17:02 | Progress Note ---
Assessment and Plan patient resting in bed with family at , no complaints of cramping or vaginal bleeding. Pt reports no nausea or vomiting after clear liquid meal. Continue current plan of care. - Patient Problems (1) 12 weeks gestation of Current Visit: Yes Status: Acute (2) Cholelithiasis Current Visit: Yes Status: Acute Plan to address problem: managed by Dr. Evans (3) Maternal pyelonephritis, current Current Visit: Yes Status: Acute Subjective - Subjective Date of service: 10/15/16 (Classifier Operator note) Principal diagnosis: pyelonephritis, intrauterine at 12 weeks, cholelithiasis Patient reports: appetite normal (tolerating clear liquids), voiding normally, ambulating normally, no nauseated Objective - Vital Signs Latest vital signs: Vital Signs Temp Pulse Resp BP 10/15/16 12:00 98.9 F 76 18 114/65 10/15/16 08:09 98.4 F 86 18 106/53 10/15/16 04:00 98.9 F 80 18 101/58 10/15/16 00:00 99.7 F H 91 H 18 104/50 10/14/16 20:00 99.1 F 84 20 102/48 Intake and Output 10/15/16 10/15/16 10/15/16 06:59 14:59 22:59 Intake Total 875 400 Output Total 300 Balance 575 400 Intake: IV 875 Lactated Ringers 1,000 ml 875 @ 125 mls/hr IV DIRECT KAJAL Rx#:[id number] Oral 280 Intake, Free Water 120 Output: Urine 300 Void 300 Other: Intake, Other Source Saline Solution Total, Intake Amount 280 Total, Output Amount 300 # Voids Void 1 Weight 56.387 kg - Exam Breasts: Present: normal Cardiovascular: Present: Regular rate Lungs: Present: Clear to auscultation, Normal air movement Abdomen: Present: normal appearance, soft Extremities: Present: normal - Labs Labs: Abnormal lab results 10/15/16 Range/Units 05:56 RBC 3.30 L (3.65-5.03) M/mm3 Hgb 8.9 L (10.1-14.3) gm/dl Hct 26.3 L (30.3-42.9) % MCH 27 L (28-32) pg RDW 16.2 H (13.2-15.2) % [place] % (Auto) 9.8 H (0.0-7.3) % Lymph # 1.1 L (1.2-5.4) K/mm3 Seg Neutrophils % 73.8 H (40.0-70.0) %
[2016-10-16] MEDS: MORPHINE IV PRN ×3 (08:10→21:28)
[2016-10-16] MEDS: LACTATED RINGERS 1,000 ML IV SCH ×2 (09:05→21:29)
[2016-10-16] MEDS: ROCEPHIN/NS 1 GM/50 ML 50 ML IV SCH (10:35)
--- NOTE | 2016-10-16 12:14 | Progress Note ---
Assessment and Plan - Patient Problems (1) 12 weeks gestation of Current Visit: Yes Status: Acute (2) Cholelithiasis Current Visit: Yes Status: Acute Plan to address problem: Will advance diet (3) Maternal pyelonephritis, current Current Visit: Yes Status: Acute Subjective Date of service: 10/16/16 Principal diagnosis: pyelonephritis, intrauterine at 12 weeks, cholelithiasis Interval history: Patient states still better. Tolerate diet. Objective - Constitutional Vitals: Vital Signs - 12hr 10/16/16 10/16/16 04:00 07:45 Temperature 98.4 F 98.2 F Pulse Rate [ 46 L 65 Left From Monitor] Respiratory 18 18 Rate Blood Pressure 102/63 98/52 [Left Arm] General appearance: Present: no acute distress - Respiratory Respiratory effort: normal - Breasts Breasts: deferred - Cardiovascular Rhythm: regular Extremities: no ischemia - Gastrointestinal General gastrointestinal: Present: soft, non-tender Rectal Exam: deferred - Genitourinary Female genitourinary: deferred - Integumentary Integumentary: clear, warm, dry - Musculoskeletal Musculoskeletal: strength equal bilaterally - Psychiatric Psychiatric: memory intact, appropriate mood/affect, intact judgment & insight - Labs CBC & Chem 7: 10/16/16 15:40 10/14/16 06:14
--- NOTE | 2016-10-16 12:57 | Progress Note ---
Assessment and Plan Pt feeling well. elpidio cl liq Abd soft surgically stable. clinically improving but noted lower h/h and BP monitor h/h may advance diet as elpidio from gen surg perspective Selected Entries 10/16/16 12:28 Temperature 98.3 F Pulse Rate [ 62 Left From Monitor] Respiratory 18 Rate Blood Pressure 95/50 [Left Arm] Laboratory Tests 10/12/16 10/15/16 09:38 05:56 Hgb 10.7 8.9 L Hct 33.1 26.3 L Objective Vital Signs - 12hr 10/16/16 10/16/16 10/16/16 04:00 07:45 12:28 Temperature 98.4 F 98.2 F 98.3 F Pulse Rate [ 46 L 65 62 Left From Monitor] Respiratory 18 18 18 Rate Blood Pressure 102/63 98/52 95/50 [Left Arm] - Labs 10/15/16 05:56 10/14/16 06:14
[2016-10-16 16:02] LABS: Basophils % (Auto) 0.2 % (0.0-1.8); Eosinophils % (Auto) 1.3 % (0.0-4.3); Hematocrit 26.5 % (30.3-42.9); Hemoglobin 9.1 gm/dl (10.1-14.3); Mean Corpuscular HGB Conc 35 % (30-34); Mean Corpuscular Hemoglobin 27 pg (28-32); Mean Corpuscular Volume 79 fl (79-97); Platelet Count 221 K/mm3 (140-440); Red Blood Count 3.34 M/mm3 (3.65-5.03); Red Cell Distribution Width 16.1 % (13.2-15.2); White Blood Count 4.5 K/mm3 (4.5-11.0)
[2016-10-17] MEDS: LACTATED RINGERS 1,000 ML IV SCH (04:22)
[2016-10-17] MEDS: MORPHINE IV PRN ×2 (04:23→10:40)
[2016-10-17 07:41] LABS: Basophils % (Auto) 0.3 % (0.0-1.8); Hemoglobin 9.4 gm/dl (10.1-14.3); Mean Corpuscular HGB Conc 32 % (30-34); Mean Corpuscular Hemoglobin 26 pg (28-32); Mean Corpuscular Volume 80 fl (79-97); Platelet Count 255 K/mm3 (140-440); Red Blood Count 3.62 M/mm3 (3.65-5.03); Red Cell Distribution Width 16.4 % (13.2-15.2); White Blood Count 5.2 K/mm3 (4.5-11.0)
--- NOTE | 2016-10-17 08:50 | Discharge Summary ---
Providers - Providers Date of Admission: 10/12/16 19:50 Date of discharge: 10/17/16 Attending physician: LAURYN CARLTON 10/13/16 13:14 Consult to Physician [CONS] Routine Consulting Provider: ISAIAH DE JESUS Reason For Exam: r/o cholecystitis, pyelonephritis. preg Place consult to:: id Notified:: office Phone number called:: [phone] Was contact made?: Yes If yes, spoke with:: bam Time called:: 09:03 Primary care physician: PRODUCT DESIGN SPECIALIST Hospitalization Condition: Good Procedures: Surgery consult and infectious disease consult Hospital course: Please see H&P for details. Patient admitted with diagnosis of pyelonephritis and cholelithiasis. Over the course of hospital stay patient fever resolved and her right upper quadrant pain and nausea and vomiting resolved. Patient was treated with Rocephin IV. With her urine culture returned positive for Escherichia coli. At time of discharge the patient was tolerating soft diet. Patient desires discharge today and from obstetrical point of view is ready for discharge with outpatient treatment for pyelonephritis. And will be discharged unless needs further care with the surgery Disposition: DISCHARGED TO HOME OR SELFCARE - Discharge Diagnoses (1) 12 weeks gestation of Status: Acute (2) Cholelithiasis Status: Chronic (3) Maternal pyelonephritis, current Status: Acute Core Measure Documentation - Palliative Care Palliative Care/ Comfort Measures: Not Applicable - Core Measures Any of the following diagnoses?: none Exam - Constitutional Vitals: Temp Pulse Resp BP Pulse Ox 98.0 F 59 L 18 96/49 100 10/17/16 07:20 10/17/16 07:20 10/17/16 07:20 10/17/16 07:20 10/12/16 23:10 General appearance: Present: no acute distress - Respiratory Respiratory effort: normal - Cardiovascular Rhythm: regular - Extremities Extremities: no ischemia - Abdominal General gastrointestinal: Present: soft, other (mildly tender) Female genitourinary: Present: deferred - Rectal Rectal Exam: deferred - Integumentary Integumentary: Present: clear, warm, dry - Psychiatric Psychiatric: appropriate mood/affect, intact judgment & insight Plan Activity: advance as tolerated Diet: low fat Additional Instructions: Patient call office for fever chills nausea or vomiting or pain not controlled by pain medicine. Patient instructed to follow- up in office within a week. Follow up with: PRIMARY CARE, [Primary Care Provider] - 3-5 Days Prescriptions: Acetaminophen/Codeine [Tylenol #3] 1 - 2 tab PO Q4HR PRN #30 tablet PRN Reason: Pain Sulfamethoxazole/Trimethoprim [Bactrim DS TAB] 1 each PO BID #14 tablet Promethazine [Phenergan] 25 mg PO Q6H PRN #15 tablet PRN Reason: Nausea
--- NOTE | 2016-10-17 11:04 | Progress Note ---
Assessment and Plan Pt elpidio diet well. Abd soft h/h's stable surgically stable f/u in office in 2 wks if d/c'ed today Selected Entries 10/17/16 07:20 Temperature 98.0 F Pulse Rate [ 59 L Left From Monitor] Blood Pressure 96/49 [Left Arm] Laboratory Tests 10/15/16 10/16/16 10/17/16 05:56 15:40 07:09 Hgb 8.9 L 9.1 L 9.4 L Hct 26.3 L 26.5 L 29.0 L Objective Vital Signs - 12hr 10/17/16 10/17/16 10/17/16 00:00 04:00 07:20 Temperature 98.1 F 98.4 F 98.0 F Pulse Rate [ 64 Left Brachial] Pulse Rate [ 59 L Left From Monitor] Respiratory 18 16 18 Rate Blood Pressure 93/47 99/40 96/49 [Left Arm] - Labs 10/17/16 07:09 10/14/16 06:14
--- NOTE | 2016-10-17 12:04 | Progress Note ---
Assessment and Plan Antibiotics: Ceftriaxone 1 g IV daily (10/13 - > Ms Crouch is a 26y/o female ( ) who presents for admission to 12 weeks with now a history of worsening right upper quadrant pain ( 10/10 intensity) associated with nausea and vomiting. She has evidence of cholelithiasis without ultrasound findings of cholecystitis. In addition she has an active urinary sediment with urine culture showing growth of Escherichia coli. Conclusions: 1. Escherichia coli ( pansensitive) UTI - R/O right sided pyelonephritis - Renal ultrasound unremarkable - Right CVA point tenderness 2. Cholelithiasis - R/O cholecystitis - Gallbladder ultrasound without wall thickening or pericholecystic fluid 3. 12 week intrauterine - Para 6 4 4. Nausea and vomiting - Out of proportion to morning sickness - R/O secondary to above 5. Leukocytosis secondary to above - Resolved 6. Anemia - probably related Recommendations: - Suspect clinical findings, especially in light of ultrasound findings, are more consistent with symptomatic UTI/right pyelonephritis - Will continue IV ceftriaxone 1 g daily. Should be able to change to po ampicillin/amoxicillin in next few days time. - Decisions regarding possible need for cholecystectomy hopefully can be made at a later time following her . - Continue supportive care. Subjective Date of service: 10/17/16 Principal diagnosis: pyelonephritis, intrauterine at 12 weeks, cholelithiasis Objective - Constitutional Vitals: Selected Entries 10/17/16 07:20 Temperature 98.0 F Pulse Rate [ 59 L Left From Monitor] Respiratory 18 Rate Blood Pressure 96/49 [Left Arm] Blood Pressure 64 Mean [Left Arm] - Labs CBC & Chem 7: 10/17/16 07:09 10/14/16 06:14 Labs: Microbiology 10/12/16 Unknown Urine,Clean Catch Urine Culture - Final Escherichia Coli 10/12/16 19:55 Peripheral/Venous Blood Culture - Preliminary NO GROWTH AFTER 4 DAYS 10/12/16 19:55 Peripheral/Venous Blood Culture - Preliminary NO GROWTH AFTER 4 DAYS Laboratory Tests 10/12/16 10/14/16 10/17/16 10:08 06:14 07:09 WBC 5.2 Plt Count 255 Creatinine 0.3 L Estimated GFR > 60 AST 21 ALT 15 Urine WBC (Auto) > 182.0 H
[2016-10-17 12:10] VITALS: BP 104/49
== END 2016-10-17 12:15 | disposition home or self-care (01) | DRG 781 ==
LOC: ED 08:56 → OB 19:50
PROVIDERS: ADMIT Obstetrics & Gynecology; ATTEND Obstetrics & Gynecology
DX: O23.01 Infections of kidney in pregnancy, first trimester (principal); O26.891 Other specified pregnancy related conditions, first trimester; O99.611 Diseases of the digestive system complicating pregnancy, first trimester; O23.41 Unspecified infection of urinary tract in pregnancy, first trimester; O99.011 Anemia complicating pregnancy, first trimester; B96.20 Unspecified Escherichia coli [E. coli] as the cause of diseases classified elsewhere; K80.20 Calculus of gallbladder without cholecystitis without obstruction; D64.9 Anemia, unspecified; R06.2 Wheezing; Z3A.12 12 weeks gestation of pregnancy; O09.31 Supervision of pregnancy with insufficient antenatal care, first trimester; Z79.899 Other long term (current) drug therapy; Z98.890 Other specified postprocedural states; Z82.5 Family history of asthma and other chronic lower respiratory diseases; Z82.49 Family history of ischemic heart disease and other diseases of the circulatory system; Z83.3 Family history of diabetes mellitus
CPT/HCPCS: 36415; 71020; 76705; 76770; 76801; 76817; 80053; 81001; 82140; 82150; 83690; 84702; 84703; 85025; 85027; 87040; 87076; 87086; 87186; 96365; 96375; J0696; J2270; J2405; J2543; J7030; J7040; J7120

== ENCOUNTER 2017-03-22 16:14 | Outpatient (CLI) | payer MEDICAID ==
[2017-03-22 16:42] VITALS: BP 111/61
[2017-03-22] MEDS ORDERED: LACTATED RINGERS 500 ML IV ONE (16:53)
[2017-03-22] MEDS ORDERED: CELESTONE SOLUSPAN IM ONE ×2 (16:58→17:22)
--- NOTE | 2017-03-23 07:21 | Ultrasound Report ---
OB LIMITED INDICATION: labor. COMPARISON: 10/12/2016 TECHNIQUE: Transabdominal grayscale ultrasound with Doppler interrogation. Gestation: Olivo Position: Cephalic Amniotic Fluid: WNL (7-24 cm) SD = 11.3 cm Heart Rate: 150 BPM
== END 2017-03-22 19:05 | disposition home or self-care (01) ==
LOC: TRG 16:14
PROVIDERS: ATTEND Obstetrics & Gynecology
DX: O47.03 False labor before 37 completed weeks of gestation, third trimester (principal); Z3A.34 34 weeks gestation of pregnancy
CPT/HCPCS: 59025; 76815; 96360; 96372; J0702; J7120

== ENCOUNTER 2017-05-11 06:56 | Day surgery (SDC) | payer MEDICAID ==
[2017-05-10 10:36] LABS: Basophils % (Auto) 0.4 % (0.0-1.8); Eosinophils % (Auto) 2.6 % (0.0-4.3); Hematocrit 25.6 % (30.3-42.9); Hemoglobin 7.8 gm/dl (10.1-14.3); Mean Corpuscular HGB Conc 31 % (30-34); Platelet Count 318 K/mm3 (140-440); Red Blood Count 3.93 M/mm3 (3.65-5.03); White Blood Count 7.6 K/mm3 (4.5-11.0)
[2017-05-10 10:39] LABS: Mean Corpuscular Hemoglobin 20 pg (28-32); Mean Corpuscular Volume 65 fl (79-97); Red Cell Distribution Width 20.1 % (13.2-15.2)
[2017-05-11] MEDS ORDERED: DILAUDID IV PRN (07:33)
--- NOTE | 2017-05-11 07:35 | Anesthesia Consultation ---
Anesthesia Consult and Med Hx Date of service: 05/11/17 - Airway Anesthetic Teeth Evaluation: Good, Chipped (left lower molar) ROM Head & Neck: Adequate Mental/Hyoid Distance: Adequate Mallampati Class: Class II Intubation Access Assessment: Probably Good - Pulmonary Exam CTA: Yes - Cardiac Exam Cardiac Exam: RRR - Pre-Operative Health Status ASA Pre-Surgery Classification: ASA2 Proposed Anesthetic Plan: General - Pulmonary Hx Asthma: No COPD: No Hx Pneumonia: No - Cardiovascular System Hx Hypertension: No - Central Nervous System Hx Seizures: No Hx Psychiatric Problems: No - Endocrine Hx Renal Disease: No Hx End Stage Renal Disease: No Hx Hypothyroidism: No Hx Hyperthyroidism: No - Hematic Hx Anemia: Yes (H/H 7.8/25) Hx Sickle Cell Disease: No - Other Systems Hx Alcohol Use: Yes (occas) Hx Cancer: No - Additional Comments Anesthesia Medical History Comments: 6 weeks
--- NOTE | 2017-05-11 07:35 | Anesthesia Day of Surgery ---
Anesthesia Day of Surgery - Day of Surgery Patient Examined: Yes Patient H&P Reviewed: Yes Patient is NPO: Yes
--- NOTE | 2017-05-11 07:41 | Short Stay Summary ---
Short Stay Documentation Date of service: 05/11/17 Narrative H&P: 27y/o with undesired fertility. The patient elects for permanent sterilization. She has declined other contraceptive options - History Principal diagnosis: Unwanted fertility Past Medical History: No medical history Past Surgical History: cholecystectomy Social history: - Allergies and Medications Current Medications: Allergies No Known Allergies Allergy (Verified 05/06/17 08:26) Home Medications Medication Instructions Recorded Confirmed Last Taken Type Ferrous Sulfate [Feosol] 325 mg PO TID 05/06/17 05/06/17 Unknown History Active Medications Famotidine (Pepcid) 20 mg PO PREOP NR Stop: 05/11/17 15:00 Hydromorphone HCl (Dilaudid) 0.5 mg IV Q10MIN PRN PRN Reason: Pain , Severe (7-10) Stop: 05/14/17 07:34 Lactated Ringer's (Lactated Ringers) 1,000 mls @ 75 mls/hr IV DIRECT KAJAL Metoclopramide HCl (Reglan) 10 mg PO PREOP NR Midazolam HCl (Versed) 2 mg IV PREOP NR Stop: 05/11/17 23:59 Ondansetron HCl (Zofran) 4 mg IV ONCE PRN PRN Reason: Nausea And Vomiting Stop: 05/11/17 07:34 Oxycodone/Acetaminophen (Percocet 5/325) 1 tab PO ONCE PRN PRN Reason: Pain, Moderate (4-6) Stop: 05/11/17 07:34 - Physical exam General appearance: no acute distress Integumentary: no rash HEENT: Atraumatic Lungs: Clear to auscultation Breasts: deferred Heart: Regular rate Gastrointestinal: normal, normoactive bowel sounds Female Genitourinary: deferred - Brief post op/procedure progress note Date of procedure: 05/11/17 Pre-op diagnosis: unwanted fertility Post-op diagnosis: same Procedure: Laparoscopic bilateral tubal ligation with Filshie clips Anesthesia: ROSELIA Surgeon: ANITRA BRANDON Estimated blood loss: none Pathology: none Condition: stable - Hospital course Hospital course: The patient was admitted the day of surgery and underwent a laparoscopic tubal ligation. Please see operative note for details of surgery. Postoperative course was uneventful. - Disposition Condition at discharge: Good Disposition: [id number] TO HOME OR SELFCARE Short Stay Discharge Plan Activity: other (pelvic rest for 1 week) Diet: regular Additional Instructions: Follow-up is not required Follow-up as needed Prescriptions: Ibuprofen [Motrin] 800 mg PO Q8HR PRN #60 tablet PRN Reason: Pain oxyCODONE /ACETAMINOPHEN [Percocet 5/325] 1 tab PO Q6HR PRN #30 tablet PRN Reason: Pain
[2017-05-11] MEDS: LACTATED RINGERS 1,000 ML IV SCH ×2 (08:00→10:37)
[2017-05-11] MEDS ORDERED: PEPCID PO NR (08:00)
[2017-05-11] MEDS ORDERED: ZOFRAN IV PRN (08:00)
[2017-05-11] MEDS ORDERED: VERSED IV NR (08:00)
[2017-05-11] MEDS ORDERED: PERCOCET 5/325 PO PRN ×2 (08:00→10:30)
[2017-05-11] MEDS ORDERED: REGLAN PO NR (08:00)
[2017-05-11] MEDS ORDERED: MARCAINE 0.5% INFILTRATI ONE ×2 (08:34→09:16)
[2017-05-11] MEDS ORDERED: DILAUDID ONE (08:35)
[2017-05-11] MEDS ORDERED: DIPRIVAN 10 MG/ML IV ONE (08:35)
[2017-05-11] MEDS ORDERED: ZEMURON IV ONE (08:35)
[2017-05-11] MEDS ORDERED: XYLOCAINE MPF 2% ONE (08:35)
[2017-05-11] MEDS ORDERED: NACL 0.9% IR ONE (09:16)
[2017-05-11] MEDS ORDERED: ROBINUL ONE (09:20)
[2017-05-11] MEDS ORDERED: BLOXIVERZ ONE (09:20)
--- NOTE | 2017-05-11 09:27 | Operative Report ---
Operative Report Operative Report: Date of surgery: 05/11/2017 Preoperative diagnosis: Unwanted fertility Postoperative diagnosis: Same as above Procedure: Laparoscopic bilateral tubal ligation with Filshie clips Surgeon: Juli Westfall M.D. Anesthesia: General endotracheal anesthesia Estimated blood loss: None Findings: Normal uterus tubes and ovaries Indication: 27-year-old 015 with undesired fertility Procedure: The patient was taken to the operating room and given general endotracheal anesthesia without complication. The patient is prepped and draped in a normal sterile fashion. A bivalve speculum was placed in the patient's vagina and a single-tooth tenaculum was placed on the anterior lip of the cervix .A uterine acorn manipulato rwas placed, and the bivalve speculum was then removed. Attention was then turned to the patient's abdomen where a 5 mm infraumbilical skin incision was then made. A Veress needle was placed and peritoneal entry was verified water-filled syringe. Insufflation of the peritoneal cavity was performed with CO2 gas. A 5 mm trocar was placed and the laparoscope was then inserted. The patient was then placed in Trendelenburg. A 7 mm suprapubic skin incision was then made. Under direct visualization a 7 mm trocar was then placed. General survey of the patient's abdomen revealed normal uterus tubes and ovaries. The fallopian tube was then followed out to the fimbriated end. A Filshie clip was placed, on the ampullary portion of the tube. This was performed on the contralateral side as well. The 7 mm trocar was then removed. The pneumoperitoneum was then released. The 5 mm trocar laparoscope was then removed. The skin incisions were then closed with 4-0 Monocryl. The incisions were injected with quarter percent Marcaine. Dressings were applied to the incision. The vaginal instruments were then removed atraumatically. Then successfully extubated and taken to the recovery room. All sponge laps and needle counts were correct 2.
[2017-05-11] MEDS ORDERED: MOTRIN PO PRN (10:30)
--- NOTE | 2017-05-11 10:30 | Post Anesthesia Evaluation ---
- Post Anesthesia Evaluation Patient Participated: Yes Airway Patent: Yes Stable Respiratory Function: Yes Nausea/Vomiting: No Temp > 96.8F: Yes Pain Manageable: Yes Adequeate Hydration: Yes Anesthesia Complications: No Block Receding Appropriately: Not Applicable Patient on Ventilator: No
[2017-05-11 18:59] VITALS: BP 112/67
== END 2017-05-11 12:37 | disposition home or self-care (01) ==
LOC: OR 06:56
PROVIDERS: ATTEND Obstetrics & Gynecology
DX: Z30.2 Encounter for sterilization (principal); D64.9 Anemia, unspecified; Z72.89 Other problems related to lifestyle; Z90.49 Acquired absence of other specified parts of digestive tract; Z79.899 Other long term (current) drug therapy
CPT/HCPCS: 36415; 58671; 84703; 85025; J1170; J2250; J2704; J2710; J7120